=== PATIENT | female | born 1985 | race African-American/Black ===

== ENCOUNTER 2019-05-10 19:05 | Emergency (ER) | payer BC ==
[~2019-05-10] VITALS: Ht 152.4 cm; Wt 74.1 kg
[2019-05-10 19:09] VITALS: Ht 152.4 cm; Wt 74.1 kg
[2019-05-10] MEDS ORDERED: CYCLOBENZAPRINE10 MG PO (19:48)
[2019-05-10] MEDS ORDERED: MOBIC7.5 MG PO (19:48)
[2019-05-10 20:14] VITALS: BP 121/77
== END 2019-05-10 20:14 | disposition home or self-care (01) ==
LOC: D.ER 19:05
DX: M54.2 Cervicalgia (principal); M54.9 Dorsalgia, unspecified; Y32.XXXD Crashing of motor vehicle, undetermined intent, subsequent encounter

== ENCOUNTER 2020-12-07 09:04 | Emergency (ER) | payer BC ==
[~2020-12-07] VITALS: Ht 152.4 cm; Wt 74.1 kg
[~2020-12-07 09:04] MED LIST: CYCLOBENZAPRINE10 MG PO; MOBIC7.5 MG PO
[2020-12-07 09:07] VITALS: BP 102/64; Ht 152.4 cm; Wt 74.1 kg
[2020-12-07 09:37] LABS: BASOPHILS 1.1 % (0-2); EOSINOPHILS 2.6 % (0-7); HEMATOCRIT 37.7 % (36.0-48.0); HEMOGLOBIN 12.4 g/dL (12-16); LYMPHOCYTES 19.4 % (15-50); MCHC 32.8 g/dL (31.0-37.0); MCV 82.1 fL (80.0-100.0); MEAN PLATELET VOLUME 8.2 fL (7.4-10.4); MONOCYTES 9.9 % (2-11); PLATELET COUNT 259 10x3/uL (130-400); RBC 4.58 10x6/uL (4.00-5.40); RDW 15.6 % (11.5-14.5); WBC 11.1 10x3/uL (4.8-10.8)
[2020-12-07 09:40] LABS: CALC OSMOLALITY 275 mosm/kg (275-300); CALCIUM 8.6 mg/dL (8.5-10.1); CARBON DIOXIDE 25.2 mmol/L (21.0-32.0); CHLORIDE - SERUM 105 mmol/L (98-107); CREATININE - SERUM 0.7 mg/dL (0.6-1.3); GLUCOSE 104 mg/dL (74-106); POTASSIUM - SERUM 3.7 mmol/L (3.5-5.1); SODIUM 139 mmol/L (136-145); UREA NITROGEN 8 mg/dL (7-18); eGFR NON AFRICAN AMERICAN > 90 mL/min (90-120)
[2020-12-07 10:08] LABS: ALBUMIN 3.5 g/dL (3.4-5.0); ALKALINE PHOSPHATASE 59 U/L (30-120); ALT (SGPT) 18 U/L (10-68); BILIRUBIN - TOTAL 0.21 mg/dL (0.2-1.3); HCG - QUANTITATIVE (MATERNAL) 2150 mIU/mL; PROTEIN - SERUM 7.1 g/dL (6.4-8.2)
[2020-12-07 10:23] LABS: BILIRUBIN NEGATIVE (NEGATIVE); KETONE NEGATIVE (NEGATIVE); NITRITE NEGATIVE (NEGATIVE); UROBILINOGEN NORMAL mg/dL (< 2)
[2020-12-07 10:25] LABS: BACTERIA FEW HPF (NONE SEEN); SQUAMOUS EPITHELIAL OCC HPF (0-4); WHITE CELLS - URINE OCC HPF (0-4)
== END 2020-12-07 12:35 | disposition home or self-care (01) ==
LOC: D.ER 09:04
PROVIDERS: Family Medicine
DX: O20.9 Hemorrhage in early pregnancy, unspecified (principal); Z3A.01 Less than 8 weeks gestation of pregnancy

== ENCOUNTER 2020-12-14 18:11 | Outpatient (CLI) | payer SELFPAY ==
[2020-12-07 09:07] VITALS: Ht 157.5 cm; Wt 73.9 kg
[~2020-12-14] VITALS: Ht 157.5 cm; Wt 73.9 kg
[2020-12-14 19:28] LABS: BASOPHILS 0.9 % (0-2); EOSINOPHILS 1.2 % (0-7); LYMPHOCYTES 21.8 % (15-50); MCH 26.9 pg (26.0-34.0); MCHC 32.6 g/dL (31.0-37.0); MCV 82.6 fL (80.0-100.0); MEAN PLATELET VOLUME 8.2 fL (7.4-10.4); MONOCYTES 8.5 % (2-11); NEUTROPHILS 67.6 % (40-80); PLATELET COUNT 217 10x3/uL (130-400); RBC 4.48 10x6/uL (4.00-5.40); RDW 15.8 % (11.5-14.5); WBC 13.1 10x3/uL (4.8-10.8)
[2020-12-14 19:55] LABS: ALBUMIN 3.4 g/dL (3.4-5.0); ALKALINE PHOSPHATASE 58 U/L (30-120); ALT (SGPT) 17 U/L (10-68); BILIRUBIN - TOTAL 0.21 mg/dL (0.2-1.3); CALC OSMOLALITY 274 mosm/kg (275-300); CALCIUM 8.7 mg/dL (8.5-10.1); CARBON DIOXIDE 23.4 mmol/L (21.0-32.0); CHLORIDE - SERUM 106 mmol/L (98-107); CREATININE - SERUM 0.7 mg/dL (0.6-1.3); GLUCOSE 86 mg/dL (74-106); HCG - QUANTITATIVE (MATERNAL) 5781 mIU/mL; POTASSIUM - SERUM 3.5 mmol/L (3.5-5.1); PROTEIN - SERUM 6.7 g/dL (6.4-8.2); SODIUM 139 mmol/L (136-145); UREA NITROGEN 7 mg/dL (7-18); eGFR NON AFRICAN AMERICAN > 90 mL/min (90-120)
--- NOTE | 2020-12-14 21:28 | NUR ---
shot given in left hip after verification of name and date of . information sheet given to pt. questions answered. tolerated procedure well.
== END 2020-12-14 22:00 | disposition home or self-care (01) ==
LOC: D.LDO 18:11
PROVIDERS: ATTEND Student in an Organized Health Care Education/Training Program
DX: O26.899 Other specified pregnancy related conditions, unspecified trimester (principal)

== ENCOUNTER → 2020-12-17 12:24 | Outpatient (CLI) | payer BC ==
[2020-12-07 09:07] VITALS: BMI 31.9
== END | disposition home or self-care (01) ==
LOC: D.LAB 12:24
PROVIDERS: ATTEND Student in an Organized Health Care Education/Training Program
DX: O02.81 Inappropriate change in quantitative human chorionic gonadotropin (hCG) in early pregnancy (principal)

== ENCOUNTER 2020-12-20 11:37 | Outpatient (CLI) | payer BC ==
--- NOTE | 2020-12-20 11:45 | NUR ---
AT BEDSIDE. PLAN OF CARE DISCUSSED WITH PATIENT. PATIENT VERBALIZED UNDERSTANDING OF INSTRUCTIONS.
[2020-12-20 14:30] VITALS: BP 107/69
--- NOTE | 2020-12-20 14:30 | NUR ---
PATIENT ADMITTED TO ROOM FROM HOME. PATIENT IN NO ACUTE DISTRESS. PATIENT HERE TO RECEIVE BLOOD DRAW FROM PREVIOUS METHOTRAXIATE ADMINSTRATION. PATIENT DENIES ISSUES WITH PREVIOUS DOSE. PROCEDURE EXPLAIN. PATIENT VERBALIZED UNDERSTANDING OF INSTRUCTIONS.
--- NOTE | 2020-12-20 15:07 | NUR ---
CONSENTS OBTAINED FOR PROCEDURE TOMORROW.
[2020-12-20 15:35] VITALS: BMI 31.9
--- NOTE | 2020-12-20 16:08 | NUR ---
PATIENT DISCHARGED HOME IN STABLE CONDITION. FAMILY PRESENT. PATIENT GIVEN DATES OF RETURN OF MONDAY OF THE UPCOMING WEEK AND MONDAY. PATIENT AND SIGNIFICANT OTHER AGREE. PATIENT ABLE TO AMBULATE TO THE DISCHARGE AREA WITH NO ASSISTANCE NEEDED.
== END 2020-12-20 16:11 | disposition home or self-care (01) ==
LOC: D.LDO 11:37
PROVIDERS: ATTEND Obstetrics & Gynecology
DX: O26.899 Other specified pregnancy related conditions, unspecified trimester (principal)

== ENCOUNTER → 2020-12-23 18:23 | Outpatient (CLI) | payer BC ==
[2020-12-20 15:35] VITALS: BMI 31.9
== END | disposition home or self-care (01) ==
LOC: D.LAB 18:23
PROVIDERS: ATTEND Obstetrics & Gynecology
DX: O00.90 Unspecified ectopic pregnancy without intrauterine pregnancy (principal)

== ENCOUNTER 2020-12-29 10:08 | Emergency (ER) | payer BC ==
[~2020-12-29] VITALS: Ht 157.5 cm; Wt 75.0 kg
[2020-12-29 10:54] VITALS: BP 98/54; Ht 157.5 cm; Wt 75.0 kg
[2020-12-29 12:10] LABS: BASOPHILS 0.7 % (0-2); EOSINOPHILS 2.1 % (0-7); HEMOGLOBIN 10.7 g/dL (12-16); LYMPHOCYTES 16.3 % (15-50); MCHC 32.4 g/dL (31.0-37.0); MCV 83.5 fL (80.0-100.0); MEAN PLATELET VOLUME 7.2 fL (7.4-10.4); MONOCYTES 9.1 % (2-11); NEUTROPHILS 71.8 % (40-80); RBC 3.95 10x6/uL (4.00-5.40); RDW 15.8 % (11.5-14.5)
[2020-12-29 12:14] LABS: PLATELET COUNT 269 10x3/uL (130-400)
[2020-12-29 12:15] LABS: CALC OSMOLALITY 277 mosm/kg (275-300); CALCIUM 8.2 mg/dL (8.5-10.1); CARBON DIOXIDE 25.4 mmol/L (21.0-32.0); CHLORIDE - SERUM 108 mmol/L (98-107); CREATININE - SERUM 0.8 mg/dL (0.6-1.3); GLUCOSE 109 mg/dL (74-106); POTASSIUM - SERUM 3.9 mmol/L (3.5-5.1); SODIUM 139 mmol/L (136-145); UREA NITROGEN 9 mg/dL (7-18); eGFR NON AFRICAN AMERICAN 87 mL/min (90-120)
[2020-12-29 12:29] LABS: HCG - QUANTITATIVE (MATERNAL) 969 mIU/mL
== END 2020-12-29 12:26 | disposition left against medical advice (07) ==
LOC: D.ER 10:08
PROVIDERS: Nurse Practitioner Family
DX: O00.101 Right tubal pregnancy without intrauterine pregnancy (principal); Z3A.00 Weeks of gestation of pregnancy not specified

== ENCOUNTER 2020-12-29 13:21 | Observation (INO) | payer BC ==
[~2020-12-29] VITALS: Ht 157.5 cm; Wt 75.0 kg
[2020-12-29 14:00] VITALS: Ht 157.5 cm; Wt 75.0 kg
[2020-12-29 15:14] LABS: BASOPHILS 0.7 % (0-2); EOSINOPHILS 2.5 % (0-7); HEMOGLOBIN 10.9 g/dL (12-16); LYMPHOCYTES 21.5 % (15-50); MCH 26.8 pg (26.0-34.0); MCV 83.9 fL (80.0-100.0); MEAN PLATELET VOLUME 7.3 fL (7.4-10.4); MONOCYTES 11.3 % (2-11); PLATELET COUNT 278 10x3/uL (130-400); RBC 4.06 10x6/uL (4.00-5.40); RDW 15.4 % (11.5-14.5); WBC 11.3 10x3/uL (4.8-10.8)
[2020-12-29 15:22] LABS: CALC OSMOLALITY 277 mosm/kg (275-300); CALCIUM 8.2 mg/dL (8.5-10.1); CARBON DIOXIDE 28.4 mmol/L (21.0-32.0); CHLORIDE - SERUM 106 mmol/L (98-107); CREATININE - SERUM 0.8 mg/dL (0.6-1.3); GLUCOSE 97 mg/dL (74-106); POTASSIUM - SERUM 4.1 mmol/L (3.5-5.1); SODIUM 140 mmol/L (136-145); UREA NITROGEN 11 mg/dL (7-18); eGFR NON AFRICAN AMERICAN 87 mL/min (90-120)
[2020-12-29 15:28] LABS: ALBUMIN 3.2 g/dL (3.4-5.0); ALKALINE PHOSPHATASE 70 U/L (30-120); ALT (SGPT) 23 U/L (10-68); BILIRUBIN - TOTAL 0.13 mg/dL (0.2-1.3); LIPASE 97 U/L (73-393); PROTEIN - SERUM 6.7 g/dL (6.4-8.2)
[2020-12-29 19:12] VITALS: BP 103/70
[2020-12-29 19:12] LABS: BASOPHILS 0.8 % (0-2); EOSINOPHILS 2.7 % (0-7); HEMATOCRIT 31.5 % (36.0-48.0); HEMOGLOBIN 10.5 g/dL (12-16); LYMPHOCYTES 31.3 % (15-50); MCHC 33.3 g/dL (31.0-37.0); MONOCYTES 11.7 % (2-11); NEUTROPHILS 53.5 % (40-80); PLATELET COUNT 263 10x3/uL (130-400); RBC 3.75 10x6/uL (4.00-5.40); RDW 15.4 % (11.5-14.5); WBC 9.7 10x3/uL (4.8-10.8)
[2020-12-29 20:13] VITALS: BP 105/82
[2020-12-29 21:13] VITALS: BP 117/74
[2020-12-29 22:12] VITALS: BP 113/76
[2020-12-30 00:17] VITALS: BP 115/66
[2020-12-30 02:18] VITALS: BP 129/74
[2020-12-30 04:18] VITALS: BP 119/62
[2020-12-30 05:49] LABS: EOSINOPHILS 3.7 % (0-7); HEMATOCRIT 30.2 % (36.0-48.0); HEMOGLOBIN 9.9 g/dL (12-16); LYMPHOCYTES 27.6 % (15-50); MCH 27.4 pg (26.0-34.0); MCHC 32.7 g/dL (31.0-37.0); MCV 84.1 fL (80.0-100.0); MEAN PLATELET VOLUME 7.7 fL (7.4-10.4); MONOCYTES 11.8 % (2-11); NEUTROPHILS 55.9 % (40-80); PLATELET COUNT 242 10x3/uL (130-400); RDW 15.5 % (11.5-14.5); WBC 9.8 10x3/uL (4.8-10.8)
[2020-12-30 06:16] LABS: ALBUMIN 2.7 g/dL (3.4-5.0); ALKALINE PHOSPHATASE 58 U/L (30-120); BILIRUBIN - TOTAL 0.11 mg/dL (0.2-1.3); CALC OSMOLALITY 282 mosm/kg (275-300); CALCIUM 7.7 mg/dL (8.5-10.1); CARBON DIOXIDE 25.3 mmol/L (21.0-32.0); CHLORIDE - SERUM 110 mmol/L (98-107); CREATININE - SERUM 0.7 mg/dL (0.6-1.3); GLUCOSE 111 mg/dL (74-106); POTASSIUM - SERUM 3.5 mmol/L (3.5-5.1); PROTEIN - SERUM 5.7 g/dL (6.4-8.2); SODIUM 142 mmol/L (136-145); UREA NITROGEN 9 mg/dL (7-18); eGFR NON AFRICAN AMERICAN > 90 mL/min (90-120)
[2020-12-30 06:20] LABS: ALT (SGPT) 17 U/L (10-68)
== END 2020-12-30 16:02 | disposition home or self-care (01) ==
LOC: D.ER 13:21 → D.EDHOLD 22:07 → OBSVTIME 22:08 → D.EDHOLD 12-30 16:02
PROVIDERS: Emergency Medicine; Family Medicine; ADMIT Obstetrics & Gynecology; ATTEND Obstetrics & Gynecology
DX: O00.201 Right ovarian pregnancy without intrauterine pregnancy (principal); R10.9 Unspecified abdominal pain; D64.9 Anemia, unspecified; Z3A.00 Weeks of gestation of pregnancy not specified